=== PATIENT | female | born 1960 | race Caucasian/White ===

== ENCOUNTER 2017-06-27 13:43 | Day surgery (SDC) | payer OTHER ==
[2017-06-27] MEDS ORDERED: LR 1,000 ML IV ONE (14:29)
[2017-06-27] MEDS ORDERED: LIDOCAINE 1% 2 ML INJ ID PRN (14:29)
--- NOTE | 2017-06-27 15:56 | PDANEPAE ---
ANE History of Present Illness EGD, EUS ANE Past Medical History - Cardiovascular History Hx Hypertension: No Hx Arrhythmias: No Hx Chest Pain: No Hx Coronary Artery / Peripheral Vascular Disease: No Hx CHF / Valvular Disease: No Hx Palpitations: No - Pulmonary History Hx COPD: No Hx Asthma/Reactive Airway Disease: No Hx Recent Upper Respiratory Infection: No Hx Oxygen in Use at Home: No Hx Sleep Apnea: No Sleep Apnea Screening Result - Last Documented: Negative - Neurologic History Hx Cerebrovascular Accident: No Hx Seizures: No Hx Dementia: No - Endocrine History Hx Diabetes: No - Renal History Hx Renal Disorders: No - Liver History Hx Hepatic Disorders: No - Neurological & Psychiatric Hx Hx Neurological and Psychiatric Disorders: Yes Neurological / Psychiatric History Comment: depression. anxiety- but has been able to wean off anxiety medications - Cancer History Hx Cancer: No - Congenital Disorder History Hx Congenital Disorders: No - GI History Hx Gastrointestinal Disorders: Yes Gastrointestinal History Comment: abd pain under breast bone initially thought it was hernia with MRI spots on pancreas were seen - Other Health History Other Health History: wears reading glasses - Chronic Pain History Chronic Pain: Yes (abd pain under breast bone) - Surgical History Prior Surgeries: na ANE Review of Systems Review of systems is: negative Review of Systems: - Exercise capacity METS (RN): 4 METS ANE Patient History - Allergies Allergies/Adverse Reactions: amoxicillin Allergy (Verified 06/26/17 12:19) been so long ago but i think i breakout in a rash - Home Medications Home medications: home medication list seen and reviewed Home Medications: Calcium Bid 06/26/17 [Last Taken Unknown] Estrogens, Conjugated 06/26/17 [Last Taken Unknown] FLUoxetine 06/26/17 [Last Taken Unknown] Progesterone 06/26/17 [Last Taken Unknown] Women's Multivitamin Tablet 06/26/17 [Last Taken Unknown] - NPO status NPO Since - Liquids (Date): 06/27/17 NPO Since - Liquids (Time): 09:15 NPO Since - Solids (Date): 06/26/17 NPO Since - Solids (Time): 21:30 - Anes Hx Anes Hx: no prior problems - Smoking Hx Smoking Status: Never smoked - Family Anes Hx Family Anes Hx: none Family Hx Anesthesia Complications: none ANE Labs/Vital Signs - Vital Signs Blood Pressure: 138/68 Heart Rate: 64 Respiratory Rate: 16 O2 Sat (%): 99 Height: 160.02 cm Weight: 58.967 kg ANE Physical Exam - Airway Neck exam: FROM Mallampati Score: Class 2 Mouth exam: normal dental/mouth exam - Pulmonary Pulmonary: no respiratory distress - Cardiovascular Cardiovascular: regular rate and rhythym - ASA Status ASA Status: I ANE Anesthesia Plan Total IV Anesthesia: Yes
[2017-06-27] MEDS ORDERED: INDOMETHACIN 50 MG SUPP PR PRN (16:22)
--- NOTE | 2017-06-27 16:22 | PDGENHP ---
History & Physical Chief Complaint: abnl imaging History of Present Illness: 57 year old female presents for evaluation of abnormal imaging. She has been complaining of epigsatric abdominal pain. Pertinent Past, Social, Family History: PMHx: anxiety. PSurghx: None Relevant Physical Exam: HEENT: anicteric. CV: RRR +s1s2. Lungs: CTAB. Abd: soft, nt, + bs Cardiorespiratory Assessment: ASA 2. Mall: 2
[2017-06-27] MEDS ORDERED: PROPOFOL/EMULSION 500 MG/50 ML BOTTLE IV ONE (16:23)
[2017-06-27] MEDS ORDERED: LIDOCAINE 2% 5 ML SDV ONE (16:24)
[2017-06-27] MEDS ORDERED: NS 500 ML IV SCH (16:30)
[2017-06-27] MEDS ORDERED: levOFLOXACIN 500 MG/DEXTROSE/100 ML BAG IV ONE (16:42)
[2017-06-27] MEDS ORDERED: fentaNYL 100 MCG/2 ML INJ IVP PRN (16:47)
[2017-06-27] MEDS ORDERED: ACETAMINOPHEN 500 MG TAB PO PRN (16:47)
[2017-06-27] MEDS ORDERED: DEXAMETHASONE 4 MG/ML VIAL IVP PRN (16:47)
[2017-06-27] MEDS ORDERED: oxyCODONE IR 5 MG TAB PO PRN (16:47)
[2017-06-27] MEDS ORDERED: PROMETHAZINE HCL 25 MG/ML INJ IVP PRN (16:47)
[2017-06-27] MEDS ORDERED: NALOXONE HCL 0.4 MG/ML INJ IVP PRN (16:47)
[2017-06-27] MEDS ORDERED: ONDANSETRON 4 MG/2 ML VIAL IVP PRN (16:47)
[2017-06-27] MEDS ORDERED: HYDROCODONE/APAP 5/325 TAB PO PRN (16:47)
--- NOTE | 2017-06-27 16:49 | POSTANESTH ---
Post Anesthetic Evaluation Cardiovascular Status: Normal, Stable, Similar to Pre-Op Cond Respiratory Status: Normal, Stable, Similar to Pre-op Cond. Level of Consciousness/Mental Status: Can Participate in Eval, Mildly Sleepy, Arousable Pain Control: Adequate, Prn Tx Ordered Nausea/Vomiting Control: Adequate, Prn Tx Ordered Complications Possibly Related to Anesthesia: None Noted
--- NOTE | 2017-06-27 17:09 | GIREPORT ---
[facility] Surgical Services - Endoscopy Department Patient Name: Aminata Woods Procedure Date: 06/27/2017 4:08 PM Patient Type: Outpatient Attending MD/ ER Physician: Misael Nam MD Procedure: Upper EUS Indications: Abnormal abdominal/pelvic CT scan, Epigastric abdominal pain Patient Profile: 57 year old female presents for evaluation of epigastric abdominal pain/abnormal imaging. Providers: Misael Nam MD Medicines: Monitored Anesthesia Care Complications: No immediate complications. Estimated blood loss: Minimal. Description of Procedure: After obtaining informed consent, the endoscope was passed under direct vision. Throughout the procedure, the patient's blood pressure, pulse, and oxygen saturations were monitored continuously. The Endosonoscope was introduced through the mouth, and advanced to the second part of duoden um. The Endoscope was introduced through the mouth, and advanced to the sec ond part of duodenum. The upper EUS was accomplished without difficulty. Th e esophagus, stomach, and duodenum were visualized endosonographically. T he patient tolerated the procedure well. Findings: Endoscopic Finding : The examined esophagus was normal. A small hiatal hernia was present. Patchy mildly erythematous mucosa was found in the gastric body and in the gastric antrum. Biopsies were taken with a cold forceps for histology. The examined duodenum was normal. Biopsies for histology were taken wit h a cold forceps for evaluation of celiac disease. Endosonographic Finding : Pancreatic parenchymal abnormalities were noted in the entire pancreas. These consisted of hyperechoic foci. Dilated side branches with hyerech oic sinclair noted. An anechoic lesion suggestive of a cyst was identified in the pancreati c body. The lesion measured 5 mm by 3 mm in maximal cross-sectional diame ter. There was a single compartment. Fine needle aspiration for cytology was performed. Color Doppler imaging was utilized prior to needle puncture to confirm a lack of significant vascular structures within the needle pat h. One pass was made with the 25 gauge needle using a transgastric approac h. A stylet was used. A silverware buffer was present and performed a preliminary cytologic examination. The cyst did collapse on aspiration. Minimal flu id was aspirated (not enough for CEA) There was no sign of significant endosonographic abnormality in the visualized portion of the liver. No masses were identified. No lymphadenopathy seen. Estimated Blood Loss: Estimated blood loss was minimal. Post Op Diagnosis: - Normal esophagus. - Small hiatal hernia. - Erythematous mucosa in the gastric body and antrum. Biopsied. - Normal examined duodenum. Biopsied. - Pancreatic parenchymal abnormalities consisting of hyperechoic foci w ere noted in the entire pancreas. Dilated side branches with hyperechoic wa lls noted. - A cystic lesion was seen in the pancreatic body. - There was no evidence of significant pathology in the visualized port ion of the liver. - Etiology? No obvious cause of pain. Await biopsy results. FNA perform ed of cyst. Recommendation: - Discharge patient to home (with escort). - Await cytology results and await path results. - Clear liquid diet till tomorrow. - Thank you for allowing me to participate in the care of your patient. Attending Participation: I personally performed the entire procedure. Misael Nam MD Misael Nam MD 06/27/2017 5:08:52 PM This report has been signed electronicallyMisael Nam MD Number of Addenda: 0 Note Initiated On: 06/27/2017 4:08 PM [email or web address]
[2017-06-27 18:34] VITALS: BP 139/56
== END 2017-06-27 18:40 | disposition home or self-care (01) ==
LOC: FSGY 13:43
PROVIDERS: ATTEND Internal Medicine Gastroenterology
PROC: 0DB68ZX Excision of Stomach, Via Natural or Artificial Opening Endoscopic, Diagnostic (ICD-10-PCS; principal; 2017-06-27 15:30)
PROC: 0DB98ZX Excision of Duodenum, Via Natural or Artificial Opening Endoscopic, Diagnostic (ICD-10-PCS; principal; 2017-06-27 15:30)
PROC: 0F9G8ZX Drainage of Pancreas, Via Natural or Artificial Opening Endoscopic, Diagnostic (ICD-10-PCS; principal; 2017-06-27 15:30)
DX: R93.3 Abnormal findings on diagnostic imaging of other parts of digestive tract (principal); K86.2 Cyst of pancreas; K44.9 Diaphragmatic hernia without obstruction or gangrene; G89.29 Other chronic pain; F41.9 Anxiety disorder, unspecified
CPT/HCPCS: J1956; J2704